=== PATIENT | male | born 1955 | race Caucasian/White ===

== ENCOUNTER → 2016-07-04 | Outpatient (CLI) | payer BC ==
[~2016-07-04] MED LIST: NO MEDICATIONS; PERCOCET5/325 PO
--- NOTE | ~2016-07-04 | CT95 ---
[facility]. [facility] A Service of [facility] / [facility] RADIOLOGY TEXT RESULTS PATIENT: BRENDA HOGAN LOCATION: [facility] : 55 UNIT #: [id number] AGE: [address]: Alexy Barnes MD SEX: M ORDER DR: [id number] [address] [address] [id number] O MR#: [id number] Acc #: [id number] NAME: BRENDA HOGAN : 1955 SEX: M STUDY DATE/TIME: 07/04/2016 16:45 UNIT: [facility] ROOM: STUDY DESCRIPTION: CT Lower Ext Rt Wo Cont Attending Physician: Carlos Alberto Barnes M.D. Ordering Physician: Carlos Alberto Barnes M.D. Primary Care Physician: Cici Sher M.D. MEDICAL IMAGING REPORT This report is preliminary unless electronic signature is present. EXAM CT right ankle and hindfoot without contrast - with coronal and sagittal reconstructions DATE OF EXAM 07/04/2016 HISTORY Order states right ankle pain 9 months following distal fibular fracture. History sheet states fracture, December 08, 2015. Lateral right ankle pain since November 2015 in the distal fibula. No related surgery. COMPARISON Right ankle radiographs 12/03/2015, 01/17/2016, 03/27/2016, 06/30/2016 FINDINGS There is an oblique distal fibular fracture extending from posterior-superior to anteroinferior. The anteroinferior component of the fracture is in the region of the anterior tibiofibular ligament. There is some bridging callus or ossification along its posterior fracture line superiorly, but the majority of the fracture line is not bridged or healed. Fracture line margins are sclerotic. Fracture is estimated at less than 20% healed. There is mild plate-like calcification along the posterior tibial cortex near the posterior tibiofibular ligament. This could reflect sequela of ligamentous or periosteal injury. The ligament appears continuous. Distal tibiofibular syndesmosis may be mildly widened posteriorly. Tibiotalar alignment is normal. The tibiotalar joint demonstrates small effusion but no definite osseous articular injury. No calcified loose bodies are noted. [facility]. [facility] A Service of [facility] RADIOLOGY TEXT RESULTS PATIENT: BRENDA HOGAN LOCATION: [facility] : 55 UNIT #: [id number] AGE: [address]: Alexy Barnes MD SEX: M ORDER DR: There is no gross tendon abnormality. There is no muscle atrophy. Sinus tarsi and tarsal tunnel are unremarkable except for minimal arterial calcification. Visualized osseous midfoot is normal. The tiny ossicles adjacent to the posterior aspect of the lateral malleolus are of doubtful significance. It could reflect sequela of old retinacular injury. IMPRESSION 1. Oblique distal fibular fracture with minimal posterior bridging calcification. The fracture is estimated at less than 20% healed. There is no displacement, but the fracture lines are sclerotic. The anterior aspect of the fracture line extends to the expected region of the anterior tibiofibular ligament. 2. Tiny flake-like calcifications posterior tibia in the region of the posterior tibiofibular ligament origin and/or tibial periosteum. Posterior tibiofibular ligament itself appears grossly intact. There may be slight widening of the posterior tibiofibular syndesmosis. Correlate for syndesmotic injury. 3. Tibiotalar effusion without osseous lesion or calcified loose body identified. 4. Tiny calcifications near the retinacular insertion on the posterior fibula could reflect sequela of old retinacular injury. There is no peroneal tendon displacement. Dictated by... Sierar Leblanc M.D. THIS IS AN ELECTRONICALLY VERIFIED REPORT Sierra Leblanc M.D. at 07/08/2016 9:35 AM C/milagro TD: 07/07/2016 14:44 JOB #: [id number] MEDICAL IMAGING REPORT Page 1 of 1
== END | disposition home or self-care (01) ==
LOC: SCT 16:38
DX: S82.831D Other fracture of upper and lower end of right fibula, subsequent encounter for closed fracture with routine healing (principal); M25.471 Effusion, right ankle
CPT/HCPCS: 73700